=== PATIENT | male | born 1955 | race Caucasian/White ===

== ENCOUNTER 2018-12-06 02:30 | Emergency (ER) | payer OTHER ==
--- OUTSIDE RECORDS SUMMARY | 2018-12-06 02:39 | XMS REPORT | Continuity of Care Document ---
:1955 External Reference #:[id number] Author Name Vel Silva M.D. (transmitted by agent of provider Jaelyn Bauer) Address [address] [place] [address] Care Team Providers Name Role Phone Moisés Bowie D.O. Care Team Information Paginator [phone] Problems Description No Information Available Social History Type Date Description Comments Sex Unknown Tobacco Use Start: Unknown Never Smoked Cigarettes ETOH Use Quit Using Alcohol. Recreational Drug Use Used Recreational Drugs In The Past Allergies, Adverse Reactions, Alerts Description No Known Drug Allergies Medications Active Medications SIG Qnty Indications Ordering Provider Date Metformin HCL 1 by mouth twice Unknown 1000mg daily - pt takes Tablets extra 500mg for total of 2500mg daily Meloxicam Unknown 15mg Tablets Tramadol HCL 1-2. tab q4h. Unknown Tablets for pain Acarbose Unknown 50mg Tablets Tamsulosin HCL Daily Moisés Bowie, 0.4mg D.O. Capsules Amlodipine Besylate Daily Moisés Bowie, 2.5mg D.O. Tablets Alogliptin Benzoate Daily Moisés Bowie, 25mg D.O. Tablets Immunizations Description No Information Available Vital Signs Date Vital Result Comment 11/05/2018 10:41am Weight 171.00 lb Height 66 inches 5'6" BMI (Body Mass Index) 27.6 kg/m2 BP Systolic 162 mmHg BP Diastolic 92 mmHg Heart Rate 88 /min O2 % BldC Oximetry 96 % Body Temperature 98.2 F Pain Level 0 08/10/2017 3:48pm Weight 168.00 lb Height 66 inches 5'6" BMI (Body Mass Index) 27.1 kg/m2 BP Systolic 127 mmHg BP Diastolic 78 mmHg Heart Rate 88 /min O2 % BldC Oximetry 97 % Body Temperature 98.4 F Pain Level 0 Results Description No Information Available Procedures Description No Information Available Medical Devices Description No Information Available Encounters Description No Information Available Assessments Description No Information Available Plan of Treatment No Information Available Functional Status Description No Information Available Mental Status Description No Information Available Referrals Refer to Reason for Referral Status Appt Vel Silva M.D. [employer] Created [address] [place] [id number] [phone]
--- OUTSIDE RECORDS SUMMARY | 2018-12-06 02:39 | XMS REPORT | Continuity of Care Document ---
:1955 External Reference #:[id number] Author Name Moisés Bowie D.O. 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 Onset: 04/28/2015 Localized, primary osteoarthritis of the hand Moisés Bowie D.O. Onset: Benign prostatic hypertrophy with outflow Moisés Bowie D.O. Onset: 2015 obstruction Low back pain Moisés Bowie D.O. Onset: 01/05/2016 Type II diabetes mellitus uncontrolled Moisés Bowie D.O. Onset: 06/28/2016 Kidney stone Moisés Bowie D.O. Onset: 05/18/2017 Social History Type Date Description Comments Sex Unknown ETOH Use Denies alcohol use Tobacco Use Start: Unknown Non Smoker Smoking Status Reviewed: 11/19/18 Non Smoker Exercise Type/Frequency Exercises sporadically Seat Belt/Car Seat Seat Belt Use - Yes Allergies, Adverse Reactions, Alerts Description No Known Drug Allergies Medications Active Medications SIG Qnty Indications Ordering Provider Date Alogliptin Benzoate Take One Tablet 90tabs E11.9 Moisés Bowie, 2018 By Mouth Every D.O. 25mg Tablets Day For Type 2 Diabetes Aripiprazole Take One Tablet 30tabs Moisés Bowie, 02/26/2018 10mg By Mouth Every D.O. Tablets Day Trazodone HCL Take One Tablet 30tabs Moisés Bowie, 02/26/2018 50mg By Mouth AT D.O. Tablets Bedtime as Needed For Sleep Amlodipine Besylate Take One Tablet 90tabs Moisés Bowie, 12/20/2017 By Mouth Once D.O. 2.5mg Tablets Daily Lisinopril Take One Tablet 90tabs ZekesavanahMoisés dumont, 03/24/2017 10mg Tablets By Mouth Every D.O. Day For Early Diabetic Kidney Disease Tramadol HCL take one tablet 45tabs M25.511 ZekeMoisés hayes, 09/27/2016 50mg by mouth every 6 D.O. Tablets hours as needed for pain maximum daily dose = 4 M54.5 Freestyle Lite Test or appropriate 200units E11.65 ZekeMoisés hayes, 2016 testing strips for D.O. Strips patients device, test 1-4 times daily as directed Brimonidine Tartrate Instill 1 Drop Into Unknown 12/15/2015 Both Eyes Two Times 0.15% Solution A Day Tamsulosin HCL Take One Capsule By 30caps N40.1 VaibhavMoisés dumont, 09/21/2015 0.4mg Mouth Every Day D.O. Capsules Multivitamin Adult 1 qd ZekeMoisés hayes, 04/28/2015 D.O. Tablets Metformin HCL take two tablets by 150tabs E11.9 ZekeMoisés hayes, 04/22/2015 500mg mouth every morning D.O. Tablets and take three tablets by mouth every evening Latanoprost Instill 1 Drop Into 7.5units ZekeMoisés hayes, 03/22/2015 0.005% Affected Eye Every D.O. Solution Evening For Increased Pressure In Eye Meloxicam Take One Tablet By 30tabs M19.042 AzebJaneon, 03/12/2015 15mg Tablets Mouth Every Day D.O. History Medications Acarbose take one tablet 270tabs E11.9 AzebMoisés, 08/31/2018 - 50mg by mouth three D.O. 11/19/2018 Tablets times a day at start of each main meal for type 2 diabetes Fish Oil 1 daily Unknown 07/02/2018 - 11/18/2018 Medications Administered in Office Medication SIG Qnty Indications Ordering Provider Date injection, kenalog, 10 mg VaibhavJane dumonton, D.O. 02/11/2016 Injection Immunizations CPT Code Status Date Vaccine Lot # [id number] Given 07/03/2018 Shingrix Zoster (Shingles) Vaccine (HZV) [id number] Recomb,Subnit,Adjuvanted 34329 Given 07/03/2018 Adacel or Boostrix, TDaP [id number] 36640 Given 06/14/2018 MMR Virus Immunization [id number] 38652 Given 11/21/2017 Shingrix Zoster (Shingles) Vaccine (HZV) [id number] Recomb,Subnit,Adjuvanted 46471 Given 11/21/2017 Influenza Virus Vaccine, Quadrivalent, Split, [id number] Preservative Free 78867 Given 09/27/2016 Influenza Virus Vaccine, Quadrivalent, Split, [id number] Preservative Free 02202 Given 02/11/2016 Zostavax [id number] 96566 Given 01/05/2016 Influenza Virus Vaccine, Quadrivalent, Split, [id number] Preservative Free Vital Signs Date Vital Result Comment 11/19/2018 10:28am BP Systolic 142 mmHg BP Diastolic 86 mmHg Height 65.25 inches 5'5.25" w/shoes Weight 171.00 lb w/shoes BMI (Body Mass Index) 28.2 kg/m2 08/31/2018 10:29am BP Systolic 132 mmHg BP Diastolic 80 mmHg Weight 156.00 lb w/shoes Results Test Date Facility Test Result H/L Range Note Laboratory test finding 11/19/2018 In House Hemoglobin A1c 6.8 Laboratory test finding 07/03/2018 In House Hemoglobin A1c 6.8 Procedures Date Code Description Status 04/05/2018 315371372 Diabetic Foot Exam Completed 03/13/2018 876436060 Diabetic Retinal Eye Exam Completed 10/12/2017 [id number] Colonoscopy Completed Medical Devices Description No Information Available Encounters Type Date Location Provider Dx Diagnosis Office Visit 08/31/2018 Main Office Moisés Bowie, E11.9 Type 2 diabetes 10:00a D.O. mellitus without complications E11.65 Type 2 diabetes mellitus with hyperglycemia Z79.84 USP (current) use of oral hypoglycemic drugs M54.5 Low back pain N40.1 Benign prostatic hyperplasia with lower urinary tract symp R19.7 Diarrhea, unspecified Office Visit 07/03/2018 10:00a Main Office Moisés Bowie, E11.9 Type 2 diabetes D.O. mellitus without complications E11.65 Type 2 diabetes mellitus with hyperglycemia Z79.84 USP (current) use of oral hypoglycemic drugs M54.5 Low back pain N40.1 Benign prostatic hyperplasia with lower urinary tract symp Z23 Encounter for immunization Assessments Date Code Description Provider 11/19/2018 Z68.28 Body mass index (BMI) 28.0-28.9, adult Moisés Bowie D.O. 11/19/2018 E11.9 Type 2 diabetes mellitus without complications Jane Bowieon D.O. 11/19/2018 M54.5 Low back pain SopsavanahkJaneon D.O. 11/19/2018 N40.1 Benign prostatic hyperplasia with lower Sopchak, Moisés D.O. urinary tract sympto 11/19/2018 Z79.84 USP (current) use of oral hypoglycemic VaibhavkJaneon D.O. drugs 08/31/2018 E11.9 Type 2 diabetes mellitus without complications SopsavanahkJaneon D.O. 08/31/2018 E11.65 Type 2 diabetes mellitus with hyperglycemia SopJane hayeson , D.O. 08/31/2018 Z79.84 USP (current) use of oral hypoglycemic SopsavanahkJaneon D.O. drugs 08/31/2018 M54.5 Low back pain SopsavanahkJaneon, D.O. 08/31/2018 N40.1 Benign prostatic hyperplasia with lower Sopchak, Moisés D.O. urinary tract sympto 08/31/2018 R19.7 Diarrhea, unspecified SopchakJaneon, D.O. 07/03/2018 E11.9 Type 2 diabetes mellitus without complications SopsavanahkJaneon D.O. 07/03/2018 E11.65 Type 2 diabetes mellitus with hyperglycemia SopsavanahkJaneon , D.O. 07/03/2018 Z79.84 USP (current) use of oral hypoglycemic Sopsavanahk, Moisés, D.O. drugs 07/03/2018 M54.5 Low back pain Sopsavanahk, Moisés, D.O. 07/03/2018 N40.1 Benign prostatic hyperplasia with lower Sopchak, Moisés, D.O. urinary tract sympto 07/03/2018 Z23 Encounter for immunization Moisés Bowie D.O. 06/14/2018 Z23 Encounter for immunization Nurse's Schedule 06/14/2018 Z41.8 Encntr for oth proc for purpose oth than Nurse's Schedule [facility] Plan of Treatment No Information Available Functional Status Description No Information Available Mental Status Description No Information Available Referrals Description No Information Available
--- OUTSIDE RECORDS SUMMARY | 2018-12-06 02:39 | XMS REPORT | Continuity of Care Document ---
:1955 External Reference #:[id number] Author Name Moisés Bowie D.O. 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 for diabetic kidney protection Alogliptin Benzoate Take One Tablet By 90tabs E11.9 Moisés Bowie, 2018 Mouth Every Day D.O. 25mg Tablets For Type 2 Diabetes Aripiprazole Take One Tablet By 30tabs Moisés Bowie, 02/26/2018 10mg Mouth Every Day D.O. Tablets Trazodone HCL Take One Tablet By 30tabs Moisés Bowie, 02/26/2018 50mg Mouth AT Bedtime D.O. Tablets as Needed For Sleep Amlodipine Besylate Take One Tablet By 90tabs Moisés Bowie, 12/20/2017 Mouth Once Daily D.O. 2.5mg Tablets Tramadol HCL take one tablet by 45tabs M25.511 Moisés Bowie, 09/27/2016 50mg mouth every 6 D.O. Tablets hours as needed for pain maximum daily dose = 4 M54.5 Freestyle Lite Test or appropriate 200units Z68.28 Moisés Bowie, 2016 testing strips for D.O. Strips patients device, test 1-4 times daily as directed Brimonidine Tartrate Instill 1 Drop Into Unknown 12/15/2015 Both Eyes Two Times 0.15% Solution A Day Tamsulosin HCL Take One Capsule By 30caps N40.1 Moisés Bowie, 09/21/2015 0.4mg Mouth Every Day D.O. Capsules Multivitamin Adult 1 qd Moisés Bowie, 04/28/2015 D.O. Tablets Metformin HCL take two tablets by 150tabs E11.9 Moisés Bowie, 04/22/2015 500mg mouth every morning D.O. Tablets and take three tablets by mouth every evening Latanoprost Instill 1 Drop Into 7.5units Moisés Bowie, 03/22/2015 0.005% Affected Eye Every D.O. Solution Evening For Increased Pressure In Eye Meloxicam Take One Tablet By 30tabs M19.042 Moisés Bowie, 03/12/2015 15mg Tablets Mouth Every Day D.O. History Medications Acarbose take one tablet 270tabs E11.9 Moisés Bowie, 08/31/2018 - 50mg by mouth three D.O. 11/19/2018 Tablets times a day at start of each main meal for type 2 diabetes Fish Oil 1 daily Unknown 07/02/2018 - 11/18/2018 Medications Administered in Office Medication SIG Qnty Indications Ordering Provider Date injection, kenalog, 10 mg Moisés Bowie D.O. 02/11/2016 Injection Immunizations CPT Code Status Date Vaccine Lot # [id number] Given 11/19/2018 Influenza Virus Vaccine, Quadrivalent, Split, [id number] Preservative Free 86972 Given 07/03/2018 Shingrix Zoster (Shingles) Vaccine (HZV) [id number] Recomb,Subnit,Adjuvanted 17287 Given 07/03/2018 Adacel or Boostrix, TDaP [id number] 85115 Given 06/14/2018 MMR Virus Immunization [id number] 70903 Given 11/21/2017 Shingrix Zoster (Shingles) Vaccine (HZV) [id number] Recomb,Subnit,Adjuvanted 57432 Given 11/21/2017 Influenza Virus Vaccine, Quadrivalent, Split, [id number] Preservative Free 76668 Given 09/27/2016 Influenza Virus Vaccine, Quadrivalent, Split, [id number] Preservative Free 17921 Given 02/11/2016 Zostavax [id number] 53158 Given 01/05/2016 Influenza Virus Vaccine, Quadrivalent, Split, [...] H/L Range Note Laboratory test finding 11/19/2018 [facility] Calcium <pending> [phone] Vitamin D Total 25(Oh) <pending> Uric Acid <pending> Urine Microalbumin 11/19/2018 [facility] Ur Microalbumin 29.1 mg/L Random [phone] (mg/L) Urine Creatinine 59.32 mg/dL Urine Microalbumin/Creatinine 49.0 High <31 Pthi 11/19/2018 [facility] Calcium (PTH Intact) 10.2 mg/dL Normal 8.6 -10.3 [phone] PTH Intact 23.7 pg/mL Normal 12-88 Basic Metabolic Panel 11/19/2018 [facility] Sodium 137 mmol/L Normal 135-145 [phone] Chloride 103 mmol/L Normal 101-111 Co2 Carbon Dioxide 28 mmol/L Normal 22-32 Glucose 103 mg/dL High 70-100 Blood Urea Nitrogen 16 mg/dL Normal 6-24 Creatinine 1.62 mg/dL High 0.67-1.17 BUN/Creatinine Ratio 9.9 Normal 8-20 Calcium 10.3 mg/dL Normal 8.6-10.3 Egfr Non- 43.4 >60 Egfr 52.5 >60 1 Potassium 5.1 mmol/L High 3.5-5.0 Anion Gap 6 mmol/L Normal 2-11 Laboratory test 11/19/2018 [facility] Uric Acid 7.3 mg/dL Normal 4.4- 7.6 finding [phone] Vitamin D Total 25(Oh) 39.7 ng/mL Normal 20-50 2 Laboratory test finding 11/19/2018 In House Hemoglobin A1c 6.8 Laboratory test finding 07/03/2018 In House Hemoglobin A1c 6.8 1 Because ethnic data is not always readily available, this report includes an eGFR for both -Americans and non- Americans. The National Kidney Disease Education Program (NKDEP) does not endorse the use of the MDRD equation for patients that are not between the ages of 18 and 70, are , have extremes of body size, muscle mass, or nutritional status, or are non- or non-. According to the National Kidney Foundation, irrespective of diagnosis, the stage of the disease is based on the level of kidney function: Stage Description GFR(mL/min/1.73 m(2)) 1 Kidney damage with normal or decreased GFR 90 2 Kidney damage with mild decrease in GFR 60-89 3 Moderate decrease in GFR 30-59 4 Severe decrease in GFR 15-29 5 Kidney failure <15 (or dialysis) 2 Total 25-Hydroxyvitamin D2 and D3 (25-OH-VitD) <10 ng/mL (severe deficiency) 10-19 ng/mL (mild to moderate deficiency) 20-50 ng/mL (optimum levels) 51-80 ng/mL (increased risk of hypercalciuria) >80 ng/mL (toxicity possible) Procedures Date Code Description Status 11/19/2018 28318 Electrocardiogram Complete Completed 04/05/2018 [id number] Diabetic Foot Exam Completed 03/13/2018 [id number] Diabetic Retinal Eye Exam Completed 10/12/2017 [id number] Colonoscopy Completed Medical Devices Description No Information Available Encounters Type Date Location Provider Dx Diagnosis Office Visit 11/19/2018 Main Office Moisés Bowie, Z68.28 Body mass index 10:00a D.O. 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 mellitus without complications E11.65 Type 2 diabetes mellitus with hyperglycemia Z79.84 custodial (current) use of oral hypoglycemic drugs M54.5 Low back pain N40.1 Benign prostatic hyperplasia with lower urinary tract symp R19.7 Diarrhea, unspecified Office Visit 07/03/2018 10:00a Main Office Moisés Bowie, E11.9 Type 2 diabetes D.O. 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 11/19/2018 E11.9 Type 2 diabetes mellitus without complications Moisés Bowie D.O. 11/19/2018 M54.5 Low back pain Moisés Bowie D.O. 11/19/2018 N40.1 Benign prostatic hyperplasia with lower Moisés Bowie D.O. 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 drugs 11/19/2018 R00.2 Palpitations Moisés Bowie D.O. 11/19/2018 E83.52 Hypercalcemia Moisés Bowie D.O. 11/19/2018 Z23 Encounter for immunization Moisés Bowie D.O. 08/31/2018 E11.9 Type 2 diabetes mellitus without complications Moisés Bowie D.O. 08/31/2018 E11.65 Type 2 diabetes mellitus with hyperglycemia Moisés Bowie D.O. 08/31/2018 Z79.84 custodial (current) use of oral hypoglycemic Moisés Bowie D.O. 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 08/31/2018 N40.1 Benign prostatic hyperplasia with lower Moisés Bowie D.O. urinary tract sympto 08/31/2018 R19.7 Diarrhea, unspecified Moisés Bowie D.O. 07/03/2018 E11.9 Type 2 diabetes mellitus without complications Moisés Bowie D.O. 07/03/2018 E11.65 Type 2 diabetes mellitus with hyperglycemia Moisés Bowie D.O. 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 drugs 07/03/2018 M54.5 Low back pain Moisés Bowie D.O. 07/03/2018 N40.1 Benign prostatic hyperplasia with lower Moisés Bowie D.O. urinary tract sympto 07/03/2018 Z23 Encounter for immunization Moisés Bowie D.O. 06/14/2018 Z23 Encounter for immunization Nurse's Schedule 06/14/2018 Z41.8 Encntr for oth proc for purpose oth than Nurse's Schedule [facility] Plan of Treatment Future Appointment(s):02/19/2019 9:45 am - Moisés Bowie D.O. at Main Rbnrar5408/31/2018 - Moisés Bowie D.O.E11.9 Type 2 diabetes mellitus without complicationsNew Medication:Acarbose 50 mg - take one tablet by mouth three times a day at start of each main meal for type 2 diabetesFollow up:as aklrtnfuxS03.65 Type 2 diabetes mellitus with knoggrobyehyvG20.84 terminal operations supervisor ( current) use of oral hypoglycemic bllcqC50.5 Low back painN40.1 Benign prostatic hyperplasia with lower urinary tract dgqtrdS49.7 Diarrhea, unspecified Functional Status Description No Information Available Mental Status Description No Information Available Referrals Description No Information Available
--- OUTSIDE RECORDS SUMMARY | 2018-12-06 02:39 | XMS REPORT | Continuity of Care Document ---
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 2.5mg Tablets [...] Provider Date injection, kenalog, 10 mg Moisés Bowie, D.O. 02/11/2016 Injection Immunizations CPT Code Status Date Vaccine Lot # [id number] Given 11/19/2018 Influenza Virus Vaccine, Quadrivalent, Split, [id number] Preservative Free 18885 Given 07/03/2018 Shingrix Zoster (Shingles) Vaccine (HZV) [id number] Recomb,Subnit,Adjuvanted 55469 Given 07/03/2018 Adacel or Boostrix, TDaP [id number] 47804 Given 06/14/2018 MMR Virus Immunization [id number] 73118 Given 11/21/2017 Shingrix Zoster (Shingles) Vaccine (HZV) [id number] Recomb,Subnit,Adjuvanted 04553 Given 11/21/2017 Influenza Virus Vaccine, Quadrivalent, Split, [id number] Preservative Free 72961 Given 09/27/2016 Influenza Virus Vaccine, Quadrivalent, Split, [id number] Preservative Free 79433 Given 02/11/2016 Zostavax [id number] 56354 Given 01/05/2016 Influenza Virus Vaccine, Quadrivalent, Split, [...] H/L Range Note Laboratory test finding 11/19/2018 [facility] Calcium <pending> [phone] Vitamin D Total 25(Oh) <pending> Uric Acid <pending> Urine Microalbumin 11/19/2018 [facility] Ur Microalbumin 29.1 mg/L Random [phone] (mg/L) Urine Creatinine 59.32 mg/dL Urine Microalbumin/Creatinine 49.0 High <31 Pthi 11/19/2018 [facility] Calcium (PTH Intact) 10.2 mg/dL Normal 8.6 -10.3 [phone] PTH Intact 23.7 pg/mL Normal 12-88 Basic Metabolic Panel 11/19/2018 [facility] Sodium 137 mmol/L Normal 135-145 [phone] Chloride 103 mmol/L Normal 101-111 Co2 Carbon Dioxide 28 mmol/L Normal 22-32 Glucose 103 mg/dL High 70-100 Blood Urea Nitrogen 16 mg/dL Normal 6-24 Creatinine 1.62 mg/dL High 0.67-1.17 BUN/Creatinine Ratio 9.9 Normal 8-20 Calcium 10.3 mg/dL Normal 8.6-10.3 Egfr Non- 43.4 >60 Egfr 52.5 >60 1 Potassium 5.1 mmol/L High 3.5-5.0 Anion Gap 6 mmol/L Normal 2-11 Laboratory test 11/19/2018 [facility] Uric Acid 7.3 mg/dL Normal 4.4- 7.6 finding [phone] Vitamin D Total 25(Oh) 39.7 ng/mL Normal [...] possible) Procedures Date Code Description Status 11/19/2018 61249 Electrocardiogram Complete Completed 04/05/2018 [id number] Diabetic Foot Exam Completed 03/13/2018 [id number] Diabetic Retinal Eye Exam Completed 10/12/2017 [id number] Colonoscopy Completed Medical Devices Description No Information Available Encounters Type Date Location Provider Dx Diagnosis Office Visit 11/19/2018 Main Office Moisés Bowie, Z68.28 Body mass index 10:00a D.O. 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 mellitus without complications E11.65 Type 2 diabetes mellitus with hyperglycemia Z79.84 retirement (current) use of oral hypoglycemic drugs M54.5 Low back pain N40.1 Benign prostatic hyperplasia with lower urinary tract symp R19.7 Diarrhea, unspecified Office Visit 07/03/2018 10:00a Main Office Moisés Bowie E11.9 Type 2 diabetes D.O. 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 11/19/2018 E11.9 Type 2 diabetes mellitus without complications Moisés Bowie D.OVíctor 11/19/2018 M54.5 Low back pain Moisés Bowie D.O. 11/19/2018 N40.1 Benign prostatic hyperplasia with lower Moisés Bowie D.O. urinary tract sympto 11/19/2018 Z79.84 retirement (current) use of oral hypoglycemic Moisés Bowie D.Angelina. drugs 11/19/2018 R00.2 Palpitations Moisés Bowie D.O. 11/19/2018 E83.52 Hypercalcemia Moisés Bowie D.OVíctor 11/19/2018 Z23 Encounter for immunization Moisés Bowie D.O. 08/31/2018 E11.9 Type 2 diabetes mellitus without complications Moisés Bowie D.O. 08/31/2018 E11.65 Type 2 diabetes mellitus with hyperglycemia Moisés Bowie D.O. 08/31/2018 Z79.84 retirement (current) use of oral hypoglycemic Moisés Bowie D.O. 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 08/31/2018 N40.1 Benign prostatic hyperplasia with lower Moisés Bowie D.O. urinary tract sympto 08/31/2018 R19.7 Diarrhea, unspecified Moisés Bowie D.O. 07/03/2018 E11.9 Type 2 diabetes mellitus without complications Moisés Bowie D.O. 07/03/2018 E11.65 Type 2 diabetes mellitus with hyperglycemia Moisés Bowie D.O. 07/03/2018 Z79.84 retirement (current) use of oral hypoglycemic Moisés Bowie D.O. drugs 07/03/2018 M54.5 Low back pain Moisés Bowie D.O. 07/03/2018 N40.1 Benign prostatic hyperplasia with lower Moisés Bowie D.O. urinary tract sympto 07/03/2018 Z23 Encounter for immunization Moisés Bowie D.O. 06/14/2018 Z23 Encounter for immunization Nurse's Schedule 06/14/2018 Z41.8 Encntr for oth proc for purpose oth than Nurse's Schedule [facility] Plan of Treatment Future Appointment(s):02/19/2019 9:45 am - Moisés Bowie D.O. 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
--- OUTSIDE RECORDS SUMMARY | 2018-12-06 02:39 | XMS REPORT | Continuity of Care Document ---
:1955 External Reference #:[id number] Author Name Moisés Bowie D.O. 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 Tablets [...] CPT Code Status Date Vaccine Lot # [id number] Given 11/19/2018 Influenza Virus Vaccine, Quadrivalent, Split, [id number] Preservative Free 99865 Given 07/03/2018 Shingrix Zoster (Shingles) Vaccine (HZV) [id number] Recomb,Subnit,Adjuvanted 10455 Given 07/03/2018 Adacel or Boostrix, TDaP [id number] 97639 Given 06/14/2018 MMR Virus Immunization [id number] 82368 Given 11/21/2017 Shingrix Zoster (Shingles) Vaccine (HZV) [id number] Recomb,Subnit,Adjuvanted 48093 Given 11/21/2017 Influenza Virus Vaccine, Quadrivalent, Split, TM9Z5 Preservative Free 42529 Given 09/27/2016 Influenza Virus Vaccine, Quadrivalent, Split, [id number] Preservative Free 19226 Given 02/11/2016 Zostavax [id number] 01561 Given 01/05/2016 Influenza Virus Vaccine, Quadrivalent, Split, [...] H/L Range Note Laboratory test finding 11/19/2018 [facility] Calcium <pending> [phone] Vitamin D Total 25(Oh) <pending> Uric Acid <pending> Urine Microalbumin 11/19/2018 [facility] Ur Microalbumin 29.1 mg/L Random [phone] (mg/L) Urine Creatinine 59.32 mg/dL Urine Microalbumin/Creatinine 49.0 High <31 Pthi 11/19/2018 [facility] Calcium (PTH Intact) 10.2 mg/dL Normal 8.6 -10.3 [phone] PTH Intact 23.7 pg/mL Normal 12-88 Basic Metabolic Panel 11/19/2018 [facility] Sodium 137 mmol/L Normal 135-145 [phone] Chloride 103 mmol/L Normal 101-111 Co2 Carbon Dioxide 28 mmol/L Normal 22-32 Glucose 103 mg/dL High 70-100 Blood Urea Nitrogen 16 mg/dL Normal 6-24 Creatinine 1.62 mg/dL High 0.67-1.17 BUN/Creatinine Ratio 9.9 Normal 8-20 Calcium 10.3 mg/dL Normal 8.6-10.3 Egfr Non- 43.4 >60 Egfr 52.5 >60 1 Potassium 5.1 mmol/L High 3.5-5.0 Anion Gap 6 mmol/L Normal 2-11 Laboratory test 11/19/2018 [facility] Uric Acid 7.3 mg/dL Normal 4.4- 7.6 finding [phone] Vitamin D Total 25(Oh) 39.7 ng/mL Normal [...] possible) Procedures Date Code Description Status 11/19/2018 94032 Electrocardiogram Complete Completed 04/05/2018 [id number] Diabetic Foot Exam Completed 03/13/2018 [id number] Diabetic Retinal Eye Exam Completed 10/12/2017 [id number] Colonoscopy Completed Medical Devices Description No Information Available Encounters Type Date Location Provider Dx Diagnosis Office Visit 11/19/2018 Main Office Moisés Bowie, Z68.28 Body mass index 10:00a D.O. (BMI) 28.0-28.9, adult E11.9 Type 2 diabetes mellitus without complications M54.5 Low back pain N40.1 Benign prostatic hyperplasia with lower urinary tract symp Z79.84 long-term (current) use of oral hypoglycemic drugs R00.2 Palpitations E83.52 Hypercalcemia Z23 Encounter for immunization Office Visit 08/31/2018 10:00a Main Office Moisés Bowie, E11.9 Type 2 diabetes D.O. 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 mellitus without complications E11.65 Type 2 diabetes mellitus with hyperglycemia Z79.84 long-term (current) use of oral hypoglycemic drugs M54.5 Low back pain N40.1 Benign prostatic hyperplasia with lower urinary tract symp Z23 Encounter for immunization Assessments Date Code Description Provider 11/19/2018 Z68.28 Body mass index (BMI) 28.0-28.9, adult Moisés Bowie D.O. 11/19/2018 E11.9 Type 2 diabetes mellitus without complications Moisés Bowie D.O. 11/19/2018 M54.5 Low back pain Moisés Bwoie D.O. 11/19/2018 N40.1 Benign prostatic hyperplasia with lower Moisés Bowie D.O. urinary tract sympto 11/19/2018 Z79.84 long-term (current) use of oral hypoglycemic Moisés Bowie D.O. drugs 11/19/2018 R00.2 Palpitations Moisés Bowie D.O. 11/19/2018 E83.52 Hypercalcemia Moisés Bowie D.O. 11/19/2018 Z23 Encounter for immunization Moisés Bowie D.O. 08/31/2018 E11.9 Type 2 diabetes mellitus without complications Moisés Bowie D.O. 08/31/2018 E11.65 Type 2 diabetes mellitus with hyperglycemia Moisés Bowie D.O. 08/31/2018 Z79.84 long-term (current) use of oral hypoglycemic Moisés Bowie D.O. 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 08/31/2018 N40.1 Benign prostatic hyperplasia with lower Moisés Bowie D.O. urinary tract sympto 08/31/2018 R19.7 Diarrhea, unspecified Moisés Bowie D.O. 07/03/2018 E11.9 Type 2 diabetes mellitus without complications Moisés Bowie D.O. 07/03/2018 E11.65 Type 2 diabetes mellitus with hyperglycemia Moisés Bowie D.O. 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 07/03/2018 N40.1 Benign prostatic hyperplasia with lower Moisés Bowie D.O. urinary tract sympto 07/03/2018 Z23 Encounter for immunization Moisés Bowie D.O. 06/14/2018 Z23 Encounter for immunization Nurse's Schedule 06/14/2018 Z41.8 Encntr for oth proc for purpose oth than Nurse's Schedule [facility] Plan of Treatment Future Appointment(s):02/19/2019 9:45 am - Moisés Bowie D.O. 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
--- OUTSIDE RECORDS SUMMARY | 2018-12-06 02:39 | XMS REPORT | Continuity of Care Document ---
:1955 External Reference #:[id number] Author Name Moisés Bowie D.O. 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 Provider Date Type [...] CPT Code Status Date Vaccine Lot # [id number] Given 11/19/2018 Influenza Virus Vaccine, Quadrivalent, Split, [id number] Preservative Free 66823 Given 07/03/2018 Shingrix Zoster (Shingles) Vaccine (HZV) [id number] Recomb,Subnit,Adjuvanted 46682 Given 07/03/2018 Adacel or Boostrix, TDaP [id number] 11881 Given 06/14/2018 MMR Virus Immunization [id number] 47426 Given 11/21/2017 Shingrix Zoster (Shingles) Vaccine (HZV) [id number] Recomb,Subnit,Adjuvanted 47464 Given 11/21/2017 Influenza Virus Vaccine, Quadrivalent, Split, TM9Z5 Preservative Free 73153 Given 09/27/2016 Influenza Virus Vaccine, Quadrivalent, Split, [id number] Preservative Free 94199 Given 02/11/2016 Zostavax [id number] 89178 Given 01/05/2016 Influenza Virus Vaccine, Quadrivalent, Split, [...] H/L Range Note Laboratory test finding 11/19/2018 [facility] Calcium <pending> [phone] Vitamin D Total 25(Oh) <pending> Uric Acid <pending> Urine Microalbumin 11/19/2018 [facility] Ur Microalbumin 29.1 mg/L Random [phone] (mg/L) Urine Creatinine 59.32 mg/dL Urine Microalbumin/Creatinine 49.0 High <31 Pthi 11/19/2018 [facility] Calcium (PTH Intact) 10.2 mg/dL Normal 8.6 -10.3 [phone] PTH Intact 23.7 pg/mL Normal 12-88 Basic Metabolic Panel 11/19/2018 [facility] Sodium 137 mmol/L Normal 135-145 [phone] Chloride 103 mmol/L Normal 101-111 Co2 Carbon Dioxide 28 mmol/L Normal 22-32 Glucose 103 mg/dL High 70-100 Blood Urea Nitrogen 16 mg/dL Normal 6-24 Creatinine 1.62 mg/dL High 0.67-1.17 BUN/Creatinine Ratio 9.9 Normal 8-20 Calcium 10.3 mg/dL Normal 8.6-10.3 Egfr Non- 43.4 >60 Egfr 52.5 >60 1 Potassium 5.1 mmol/L High 3.5-5.0 Anion Gap 6 mmol/L Normal 2-11 Laboratory test 11/19/2018 [facility] Uric Acid 7.3 mg/dL Normal 4.4- 7.6 finding [phone] Vitamin D Total 25(Oh) 39.7 ng/mL Normal [...] possible) Procedures Date Code Description Status 11/19/2018 72563 Electrocardiogram Complete Completed 04/05/2018 [id number] Diabetic Foot Exam Completed 03/13/2018 [id number] Diabetic Retinal Eye Exam Completed 10/12/2017 [id number] Colonoscopy Completed Medical Devices Description No Information Available Encounters Type Date Location Provider Dx Diagnosis Office Visit 11/19/2018 Main Office Moisés Bowie, Z68.28 Body mass index 10:00a D.O. 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 urinary tract sympto 11/19/2018 Z79.84 jail (current) use of oral hypoglycemic Moisés Bowie D.O. drugs 11/19/2018 R00.2 Palpitations Moisés Bowie D.O. 11/19/2018 E83.52 Hypercalcemia Moisés Bowie D.O. 11/19/2018 E11.65 Type 2 diabetes mellitus with hyperglycemia Moisés Bowie D.O. 11/19/2018 Z23 Encounter for immunization Moisés Bowie D.O. 08/31/2018 E11.9 Type 2 diabetes mellitus without complications Moisés Bowie D.O. 08/31/2018 E11.65 Type 2 diabetes mellitus with hyperglycemia Moisés Bowie D.O. 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 08/31/2018 N40.1 Benign prostatic hyperplasia with lower Moisés Bowie D.O. urinary tract sympto 08/31/2018 R19.7 Diarrhea, unspecified Moisés Bowie D.O. 07/03/2018 E11.9 Type 2 diabetes mellitus without complications Moisés Bowie D.O. 07/03/2018 E11.65 Type 2 diabetes mellitus with hyperglycemia Moisés Bowie D.O. 07/03/2018 Z79.84 jail (current) use of oral hypoglycemic Moisés Bowie D.O. drugs 07/03/2018 M54.5 Low back pain Moisés Bowie D.O. 07/03/2018 N40.1 Benign prostatic hyperplasia with lower Moisés Bowie D.O. urinary tract sympto 07/03/2018 Z23 Encounter for immunization Moisés Bowie D.O. 06/14/2018 Z23 Encounter for immunization Nurse's Schedule 06/14/2018 Z41.8 Encntr for oth proc for purpose oth than Nurse's Schedule [facility] Plan of Treatment Future Appointment(s):02/19/2019 9:45 am - Moisés Bowie D.O. 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
[2018-12-06] MEDS ORDERED: Ketorolac INJ* 15 MG/ML 1 ML VIAL IV ONE (03:30)
[2018-12-06] MEDS ORDERED: NS 0.9% 1000 ML** 1,000 ML IV ONE ×2 (03:30→07:30)
--- NOTE | 2018-12-06 03:37 | ED ---
Back Pain - HPI Summary HPI Summary: The patient is a 63 y/o M presenting to [facility] with a chief complaint of left lateral abdomen and back with sudden onset in the last few hours. He reports that he had been sleeping when the pain began, and he did not have the pain prior to going to sleep. The constant pain is described as a dull, aching pain that doesnt radiate with rating of 7/10 in severity. He has attempted to relieve the pain with Tramadol and antacids to no relief. There are no aggravating factors. He denies any fever, nausea, abdominal pain, or diarrhea. He notes that he lifted a drum set earlier in the day but didnt have pain then either. He states has not experienced similar pain prior to this episode. Urologist is in [place]. PMHx: DM, HTN, kidney stones. Nonsmoker, no EtOH, marijuana use. Medications reviewed. Allergies noted. - History of Current Complaint Chief Complaint: EDAbdPain Stated Complaint: DULL PAIN ON LEFT SIDE PER PT Time Seen by Provider: 12/06/18 03:16 Hx Obtained From: Patient Onset/Duration: Sudden Onset, Lasting Hours - in the last few hours, Still Present Onset/Duration: Started Hours Ago, Still Present Timing: Constant, Lasting Hours Back Pain Location: Is Discrete @ - left lateral abdomen and back Severity Initially: Moderate Severity Currently: Moderate Pain Intensity: 7 Pain Scale Used: 0-10 Numeric Character: Dull, Aching Aggravating Symptom(s): Nothing Alleviating Symptom(s): Nothing - Tramadol and antacids to no relief Associated Signs And Symptoms: Positive: Flank Pain - left. Negative: Fever, Abdominal Pain, Other - nausea, diarrhea - Allergies/Home Medications Allergies/Adverse Reactions: Allergies Allergy/AdvReac Type Severity Reaction Status Date / Time No Known Allergies Allergy Verified 12/06/18 02:34 Home Medications: Home Medications ARIPiprazole [Aripiprazole] 10 mg PO DAILY 12/06/18 [History Confirmed 12/06/18] Acarbose(NF) 50 mg PO DAILY 12/06/18 [History Confirmed 12/06/18] Alogliptin Benzoate [Alogliptin] 25 mg PO DAILY 12/06/18 [History Confirmed ] Amlodipine Besylate [Amlodipine 2.5 mg tab] 2.5 mg PO DAILY 12/06/18 [History Confirmed 12/06/18] Lisinopril 10 mg PO DAILY 12/06/18 [History Confirmed 12/06/18] Lisinopril 20 mg PO DAILY 12/06/18 [History Confirmed 12/06/18] Meloxicam [Mobic] 15 mg PO DAILY 12/06/18 [History Confirmed 12/06/18] Metformin ER (NF) 500 mg PO DAILY 12/06/18 [History Confirmed 12/06/18] Tamsulosin CAP* 0.4 mg PO DAILY 12/06/18 [History Confirmed 12/06/18] traZODone TAB* [Desyrel TAB*] 50 mg PO BEDTIME 12/06/18 [History Confirmed 12/06] PMH/Surg Hx/FS Hx/Imm Hx Endocrine/Hematology History: Reports: Hx Diabetes - Type II Cardiovascular History: Reports: Hx Hypertension History: Reports: Hx Kidney Stones - BILAT - Surgical History Surgical History: Yes Surgery Procedure, Year, and Place: rt leg fx 10 yrs ago, inguinal hernia Infectious Disease History: No Infectious Disease History: Denies: Traveled Outside the [place] in Last 30 Days - Family History Known Family History: Positive: Hypertension - Social History Alcohol Use: None Hx Substance Use: Yes Substance Use Type: Reports: Marijuana Substance Use Comment - Amount & Last Used: daily Hx Tobacco Use: No Smoking Status (MU): Never Smoked Tobacco Review of Systems - ROS Summary Review of Systems Summary: Home Medications Medication Instructions Recorded Confirmed Type ARIPiprazole [Aripiprazole] 10 mg PO DAILY 12/06/18 12/06/18 History Acarbose(NF) 50 mg PO DAILY 12/06/18 12/06/18 History Alogliptin Benzoate [Alogliptin] 25 mg PO DAILY 12/06/18 12/06/18 History Amlodipine Besylate [Amlodipine 2.5 mg PO DAILY 12/06/18 12/06/18 History 2.5 mg tab] Lisinopril 10 mg PO DAILY 12/06/18 12/06/18 History Lisinopril 20 mg PO DAILY 12/06/18 12/06/18 History Meloxicam [Mobic] 15 mg PO DAILY 12/06/18 12/06/18 History Metformin ER (NF) 500 mg PO DAILY 12/06/18 12/06/18 History Tamsulosin CAP* 0.4 mg PO DAILY 12/06/18 12/06/18 History Tramadol 50 MG # 6 TAB PREPAK 50 mg PO DAILY 12/06/18 12/06/18 History traZODone TAB* [Desyrel TAB*] 50 mg PO BEDTIME 12/06/18 12/06/18 History Negative: Fever Negative: Abdominal Pain, Diarrhea, Nausea Positive: Other - left lateral abdomen and back pain All Other Systems Reviewed And Are Negative: Yes Physical Exam - Summary Physical Exam Summary: General: Well-developed, Well-nourished male. Mild acute discomfort. HEENT: Normocephalic, Atraumatic. Eyes: Conjuctiva normal, PERRL. Ears: TMs within normal limits. Nares: (-) discharge, (-) erythema. Oropharynx: Clear, mucous membranes moist, (-) exudates. Neck: Soft, FROM, (-) lymphadenopathy, (-) thyromegaly, (-) JVD. Cardiovascular: Normal sinus rhythm, (-) murmur. Lungs: Clear to auscultation bilaterally (-) wheezes, (-) rales, (-) rhonchi. Abdomen: Soft, non-tender with pain described in the lateral left abdomen into the left back, non-distended, (-) organomegaly, normal bowel sounds. Back: (-) CVA tenderness Extremities: No edema. Skin: Warm, dry, (-) rash. Neuro: Alert and oriented x3, no focal deficits. Psychiatric: Mood normal, affect normal. Triage Information Reviewed: Yes Vital Signs On Initial Exam: Initial Vitals Temp Pulse Resp BP Pulse Ox 96.8 F 80 20 201/102 100 12/06/18 02:31 12/06/18 02:31 12/06/18 02:31 12/06/18 02:31 12/06/18 02:31 Vital Signs Reviewed: Yes Procedures - Sedation Patient Received Moderate/Deep Sedation with Procedure: No Diagnostics - Vital Signs Vital Signs Temp Pulse Resp BP Pulse Ox 12/06/18 02:31 96.8 F 80 20 201/102 100 - Laboratory Result Diagrams: 12/06/18 03:47 12/06/18 03:47 Lab Statement: Any lab studies that have been ordered have been reviewed, and results considered in the medical decision making process. - CT Abdominopelvic CT CT Interpretation Completed By: Radiologist Summary of CT Findings: Impression: 2 calcified stones located in the left mid ureter. This causes severe left-sided hydronephrosis with perinephric stranding. Both kidneys show multiple small renal stones located and clicking system which are nonobstructing. ED physician has reviewed this report. Re-Evaluation - Re-Evaluation First Eval Re-Evaluation Time: 06:15 Change: Unchanged Comment: We discussed all findings and plan for treatment. He is administered Fentanyl for pain relief. Back Pain Course/Dx - Course Course Of Treatment: 63-year-old male with flank pain. Pain not controlled with Toradol. IV fluids. Given fentanyl. CAT scan demonstrated nephrolithiasis. Discussed with urology on-call at 7 AM. KUB recommended. I was ordered and patient signed out at change shift. - Diagnoses Provider Diagnoses: Ureteral stone, Ureteral colic - Provider Notifications Discussed Care Of Patient With: Jules Zimmer - urology Time Discussed With Above Provider: 07:10 Instructed by Provider To: Other - I discussed the pt's case with Dr. Zimmer, and he recommends a KUB. Discharge ED - Sign-Out/Discharge Documenting (check all that apply): Sign-Out Patient Signing out patient TO: Yasmani Vicente - Patient is a sign-out to Dr. Yasmani Vicente MD, at 0700 on 12/06/2018, pending consultation with urology specialist and disposition. - Discharge Plan Condition: Stable Disposition: HOME Prescriptions: Naproxen [Naproxen 500 mg tab] 500 mg PO BID #10 tablet oxyCODONE/Acetam5/325MG PREPAK [Percocet 5/325 TAB*] 1 tab PO Q4H PRN #10 tab MDD 6 PRN Reason: Pain - Severe Patient Education Materials: Ureteral Stones (ED) Referrals: Moisés Bowie DO [Primary Care Provider] - Jules Zimmer MD [Medical Doctor] - Additional Instructions: Follow up with Dr. Zimmer or another urologist in 2-3 days. RETURN TO THE EMERGENCY DEPARTMENT FOR FEVER OR WORSENING PAIN. - Billing Disposition and Condition Condition: STABLE Disposition: Home - Attestation Statements Document Initiated by Scribe: Yes Documenting Scribe: Valeria Nunez Provider For Whom Scribe is Documenting (Include Credential): Dr. Joana Wallace MD Scribe Attestation: I, Valeria Nunez, scribed for Dr. Joana Wallace MD on 12/07/18 at 0. Scribe Documentation Reviewed: Yes Provider Attestation: The documentation as recorded by the scribe, Valeria Nunez accurately reflects the service I personally performed and the decisions made by me, Dr. Joana Wallace MD Status of Scribe Document: Viewed
[2018-12-06 03:56] LABS: ABS Basophils 0.1 10^3/ul (0-0.2); ABS Eosinophils 0.2 10^3/ul (0-0.6); ABS Lymphocytes 1.4 10^3/ul (1.0-4.8); ABS Monocytes 0.7 10^3/ul (0-0.8); ABS Neutrophils 10.6 10^3/ul (1.5-7.7); Eosinophil % 1.2 %; Hematocrit 37 % (42-52); Hemoglobin 12.1 g/dL (14.0-18.0); Mean Corpuscular HGB Conc 33 g/dL (31-36); Mean Corpuscular Hemoglobin 28 pg (27-31); Mean Corpuscular Volume 85 fL (80-94); Mean Platelet Volume 7.9 fL (7.4-10.4); Platelet Count 270 10^3/uL (150-450); Red Cell Distribution Width 15 % (10-15); White Blood Count 12.9 10^3/uL (3.5-10.8)
[2018-12-06 04:01] LABS: INR 0.85 (0.82-1.09)
[2018-12-06 04:16] LABS: Albumin 4.3 g/dL (3.2-5.2); Albumin/Globulin Ratio 1.6 (1-3); BUN/Creatinine Ratio 10.9 (8-20); C Reactive Protein 2.19 mg/L (<8.01); Calcium 10.2 mg/dL (8.6-10.3); EGFR African American 42.9 (>60); EGFR Non-African American 35.5 (>60); Globulin 2.7 g/dL (2-4); Potassium 4.6 mmol/L (3.5-5.0); Total Bilirubin 0.3 mg/dL (0.2-1.0)
[2018-12-06 04:36] LABS: Urine Appearance Cloudy; Urine Bacteria Absent (Absent); Urine Bilirubin Negative (Negative); Urine Blood 3+ (Negative); Urine Color Yellow; Urine Glucose 1+(50 mg/dL) (Negative); Urine Ketones Negative (Negative); Urine Nitrite Negative (Negative); Urine Protein Negative (Negative); Urine Red Blood Cell 3+(>10/hpf) (Absent); Urine Urobilinogen Negative (Negative); Urine White Blood Cell Absent (Absent)
[2018-12-06] MEDS ORDERED: Iodixanol* (CONTRAST) 320 MG/ML 100 ML SDV IV ONE (04:58)
[2018-12-06] MEDS ORDERED: fentaNYL* 50 MCG/ML 2 ML VIAL (100 MCG VIAL) IV SLOW PU ONE (06:10)
--- NOTE | 2018-12-06 07:08 | ED ---
Progress - Progress Note Progress Note: Pt is a sign out from Dr. Joana Wallace MD to Dr. Yasmani Vicente MD at 07:00 on 12/06/18 at shift change, pending urology consult and disposition. At, 07:35, I spoke with Dr. Jules Zimmer, I described the KUB to him and my concern for mid to proximal ureter stone and hydro-ureter for pain. Will see the patient as soon as he arrives to the hospital. At 08:41, Dr. Jules Zimmer assessed the patient and recommends patient be discharged home with plenty of fluids. Follow up in his office. Patient will be discharged home with a diagnosis of ureteral stone and ureteral colic. Follow up with Dr. Zimmer or another urologist in 2-3 days. - Results/Orders Results/Orders: Laboratory abnormal findings: urine blood 3, urine RBC 3, and urine glucose 1+. Abdomen X-ray IMPRESSION: #. Mild proximal LEFT ureteral dilatation and persistent pyelographic phase contrast due to obstructing stone documented on CT. The corresponding CT documented ureteral stone is largely obscured due to the contrast from the preceding CT. Based on correlation with the prior CT the most inferior and dominant LEFT ureteral stone measures up to 0.8 cm cephalocaudal. Associated delayed/persistent LEFT nephrogram and pyelogram. #. Bilateral medullary nephrocalcinosis and calyceal stones. #. Moderately distended urinary bladder with pyelographic phase contrast. - EKG/XRAY/CT XRAY: abdomen - See Results/Orders Re-Evaluation - Re-Evaluation First Eval Re-Evaluation Time: 06:15 Change: Unchanged Comment: We discussed all findings and plan for treatment. He is administered Fentanyl for pain relief. Course/Dx - Course Course Of Treatment: Pt is a sign out from Dr. Joana Wallace MD to Dr. Yasmani Vicente MD at 07:00 on 12/06/18 at shift change, pending urology consult and disposition. In the ED course, pt was given ondansetron 4 mg IV, morphine 4 mg IV, and fluids. At, 07:35, I spoke with Dr. Jules Zimmer, I described the KUB to him and my concern for mid to proximal ureter stone and hydro-ureter for pain. Will see the patient as soon as he arrives to the hospital. Laboratory abnormal findings: urine blood 3, urine RBC 3, and urine glucose 1+. Abdomen X- ray IMPRESSION: #. Mild proximal LEFT ureteral dilatation and persistent pyelographic phase contrast due to obstructing stone documented on CT. The corresponding CT documented ureteral stone is largely obscured due to the contrast from the preceding CT. Based on correlation with the prior CT the most inferior and dominant LEFT ureteral stone measures up to 0.8 cm cephalocaudal. Associated delayed/persistent LEFT nephrogram and pyelogram. #. Bilateral medullary nephrocalcinosis and calyceal stones. #. Moderately distended urinary bladder with pyelographic phase contrast. At 08:41, Dr. Jules Zimmer assessed the patient and recommends patient be discharged home with plenty of fluids. Follow up in his office. Patient will be discharged with a diagnosis of ureteral stone and ureteral colic. Follow up with Dr. Zimmer or another urologist in 2-3 days. - Diagnoses Provider Diagnoses: Ureteral stone, Ureteral colic - Provider Notifications Discussed Care Of Patient With: Jules Zimmer Time Discussed With Above Provider: 07:35 - At, 07:35, I spoke with Dr. Zimmer, I described the KUB to him and my concern for mid to proximal ureter stone and hydro-ureter for pain. Will see the patient as soon as he arrives to the hospital. Discharge ED - Sign-Out/Discharge Documenting (check all that apply): Patient Departure - Discharge, Receiving Sign-Out Receiving patient FROM: Joana Wallace - 07:00 on 12/06/18 - Discharge Plan Condition: Stable Disposition: HOME Prescriptions: Naproxen [Naproxen 500 mg tab] 500 mg PO BID #10 tablet oxyCODONE/Acetam5/325MG PREPAK [Percocet 5/325 TAB*] 1 tab PO Q4H PRN #10 tab MDD 6 PRN Reason: Pain - Severe Patient Education Materials: Ureteral Stones (ED) Referrals: Moisés Bowie DO [Primary Care Provider] - Jules Zimmer MD [Medical Doctor] - Additional Instructions: Follow up with Dr. Zimmer or another urologist in 2-3 days. RETURN TO THE EMERGENCY DEPARTMENT FOR FEVER OR WORSENING PAIN. - Attestation Statements Document Initiated by Scribe: Yes Documenting Scribe: Ira Gar Provider For Whom Scribe is Documenting (Include Credential): Yasmani Vicente MD Scribe Attestation: I, Ira Gar, scribed for Yasmani Vicente MD on 12/06/18 at 0856. Status of Scribe Document: Ready
[2018-12-06] MEDS ORDERED: Morphine 4 MG/ML VIAL (1 ml) 4 MG/ML VIAL IV ONE (07:30)
[2018-12-06] MEDS ORDERED: Ondansetron INJ* 2 MG/ML VIAL IV ONE (07:30)
[2018-12-06 09:08] VITALS: BP 165/107
== END 2018-12-06 09:05 | disposition home or self-care (01) ==
LOC: ED 02:30
DX: N20.1 Calculus of ureter (principal); N20.0 Calculus of kidney; E11.9 Type 2 diabetes mellitus without complications; I10 Essential (primary) hypertension; Z79.84 Long term (current) use of oral hypoglycemic drugs; Z79.899 Other long term (current) drug therapy
CPT/HCPCS: 36415; 74018; 74177; 80053; 81003; 81015; 83605; 83690; 85025; 85610; 86140; 96361; 96374; 96375; 99284; J1885; J2270; J2405; J3010; Q9967